=== PATIENT | male | born 1960 | race Caucasian/White ===

== ENCOUNTER 2019-09-22 06:06 | Emergency (ER) | payer SELFPAY ==
[~2019-09-22] VITALS: Ht 175.3 cm; Wt 89.8 kg
[2019-09-22 06:12] VITALS: Ht 175.3 cm; Wt 89.8 kg
[2019-09-22 06:48] VITALS: BP 132/80
== END 2019-09-22 07:41 | disposition home or self-care (01) ==
LOC: ED 06:06
DX: S20.212A Contusion of left front wall of thorax, initial encounter (principal); R03.0 Elevated blood-pressure reading, without diagnosis of hypertension; V43.62XA Car passenger injured in collision with other type car in traffic accident, initial encounter; Y93.89 Activity, other specified; Y92.488 Other paved roadways as the place of occurrence of the external cause; Y99.8 Other external cause status

== ENCOUNTER 2019-09-29 12:12 | Emergency (ER) | payer OTHER ==
[~2019-09-29] VITALS: Ht 175.3 cm; Wt 88.9 kg
[2019-09-29 12:14] VITALS: Ht 175.3 cm; Wt 88.9 kg
[2019-09-29 13:43] VITALS: BP 139/81
== END 2019-09-29 13:43 | disposition home or self-care (01) ==
LOC: ED 12:12
DX: S20.212A Contusion of left front wall of thorax, initial encounter (principal); V48.9XXA Unspecified car occupant injured in noncollision transport accident in traffic accident, initial encounter; Y93.89 Activity, other specified; Y92.488 Other paved roadways as the place of occurrence of the external cause; Y99.8 Other external cause status